=== PATIENT | male | born 1970 | race Two or more races ===

== ENCOUNTER 2022-01-23 17:16 | Inpatient (IN) | payer OTHER ==
[~2022-01-23] VITALS: Ht 170.2 cm; Wt 81.6 kg
[2022-01-23] MEDS ORDERED: HUMALOG KW100 UNIT/1 SQ (18:40)
[2022-01-23] MEDS ORDERED: GABAPENTIN300 M2 PO (18:40)
[2022-01-23] MEDS ORDERED: JARDIANCE25 MG PO (18:40)
[2022-01-23] MEDS ORDERED: SIMVASTATIN40 MG PO (18:41)
[2022-01-23] MEDS ORDERED: METOPROLOL SUCC25 MG PO (18:41)
[2022-01-23] MEDS ORDERED: METFORMIN HCL500 M4 PO (18:41)
[2022-01-23] MEDS ORDERED: OMEPRAZOLE40 MG PO (18:41)
--- NOTE | 2022-01-23 18:46 | NUR ---
PTE LLEGA A LA MARIELLE DE EMERGENCIA POR REFERIDO DEL ES ARRIAZA POR HERNIA UMBILICAL SE ACOMODA EN HEATHER CON BARBADA EEVADA.
--- NOTE | 2022-01-23 19:19 | NUR ---
PACIENTE SE LE REALIZAN MUETSRAS DE YAMILEX POR ORDEN MEDICA, SE ORIENTA A PACIENTE SOBRE LAS ORDENES MEDICAS. PACIENTE EN ESPERA DE RESULTADOS DE LABORATORIO. SE REALIZA EKG.
[2022-01-25] MEDS ORDERED: BRILINTA60 MG (08:25)
== END 2022-01-26 14:39 | disposition home or self-care (01) | DRG 355 ==
LOC: ER 17:16 → SEC-K 20:18 → MEDJ 20:18 → SEC-K 01-24 15:42 → MEDJ 01-24 20:14
PROVIDERS: Surgery; ADMIT Internal Medicine; ATTEND Internal Medicine
PROC: BW21Y0Z Computerized Tomography (CT Scan) of Abdomen and Pelvis using Other Contrast, Unenhanced and Enhanced (ICD-10-PCS; 2022-01-23)
PROC: 0WQF0ZZ Repair Abdominal Wall, Open Approach (ICD-10-PCS; principal; 2022-01-25 12:00)
DX: K42.0 Umbilical hernia with obstruction, without gangrene (principal); I10 Essential (primary) hypertension; F17.210 Nicotine dependence, cigarettes, uncomplicated; Z20.822 Contact with and (suspected) exposure to COVID-19

== ENCOUNTER 2024-07-21 09:45 | Inpatient (IN) | payer OTHER ==
[~2024-07-21] VITALS: Ht 243.8 cm; Wt 85.7 kg
[~2024-07-21 09:45] MED LIST: BRILINTA60 MG; GABAPENTIN300 M2 PO; HUMALOG KW100 UNIT/1 SQ; JARDIANCE25 MG PO; METFORMIN HCL500 M4 PO; METOPROLOL SUCC25 MG PO; OMEPRAZOLE40 MG PO; SIMVASTATIN40 MG PO
[2024-07-21] MEDS ORDERED: PLAVIX75 MG PO (11:54)
[2024-07-21] MEDS ORDERED: NORFLEX100MG (11:55)
[2024-07-21] MEDS ORDERED: ECOTRIN81 MG PO (11:55)
[2024-07-21] MEDS ORDERED: PROTONIX20 MG (11:56)
[2024-07-21 12:00] VITALS: BP 16/76
[2024-07-21 12:13] LABS: INR 1.06; PARTIAL THROMBOPLASTIN TIME 25.9 SECONDS (22.0-34.0); PROTHROMBIN TIME 11.5 SECONDS (9.0-11.5)
[2024-07-26] MEDS ORDERED: CEFAZOLIN SODIUM 1,000 MG VIAL ONE ×2 (07:13→19:01)
[2024-07-26] MEDS ORDERED: SUGAMMADEX SODIUM 200 MG/2 ML VIAL IV ONE (11:06)
[2024-07-26] MEDS ORDERED: MORPHINE SULFATE 4 MG/ML VIAL IV ONE ×2 (12:00→17:25)
[2024-07-26] MEDS ORDERED: CEFAZOLIN SODIUM 1,000 MG VIAL IV SCH (12:11)
[2024-07-26] MEDS ORDERED: MORPHINE SULFATE 4 MG/ML CARTRIDGE IV PRN (12:15)
[2024-07-26] MEDS ORDERED: ENOXAPARIN SODIUM 40 MG/0.4 ML SYRINGE SUBCUTANEO SCH (17:00)
[2024-07-26 19:34] VITALS: BP 104/64; O2SAT 96
[2024-07-26] MEDS ORDERED: METRONIDAZOLE/SODIUM CHLORIDE 500 MG/100 ML PIGGYBACK IV SCH (21:00)
[2024-07-27 01:14] VITALS: BP 110/65; O2SAT 96
[2024-07-27 08:37] VITALS: BP 97/62; O2SAT 96
[2024-07-27] MEDS ORDERED: CEFTRIAXONE SODIUM 2,000 MG VIAL IV SCH (09:00)
[2024-07-27 16:49] VITALS: BP 106/70; O2SAT 95
[2024-07-28 01:36] VITALS: BP 116/70; O2SAT 99
[2024-07-28 08:42] VITALS: BP 113/75; O2SAT 98
[2024-07-28 16:49] VITALS: BP 115/74; O2SAT 97
== END 2024-07-28 19:15 | disposition home or self-care (01) | DRG 328 ==
LOC: O/R 07-26 05:30 → SURH 07-26 09:45
PROVIDERS: ADMIT Surgery; ATTEND Surgery
PROC: 8E0W4CZ Robotic Assisted Procedure of Trunk Region, Percutaneous Endoscopic Approach (ICD-10-PCS; 2024-07-26)
PROC: 0D844ZZ Division of Esophagogastric Junction, Percutaneous Endoscopic Approach (ICD-10-PCS; principal; 2024-07-26 10:30)
PROC: BD11YZZ Fluoroscopy of Esophagus using Other Contrast (ICD-10-PCS; 2024-07-27)
DX: K22.0 Achalasia of cardia (principal); I10 Essential (primary) hypertension; E11.9 Type 2 diabetes mellitus without complications; F17.200 Nicotine dependence, unspecified, uncomplicated; Z79.84 Long term (current) use of oral hypoglycemic drugs
CPT/HCPCS: 43279; 74230; S2900